=== PATIENT | male | born 1970 | race Caucasian/White ===

== ENCOUNTER → 2018-04-28 14:50 | Outpatient (CLI) | payer OTHER, SELFPAY ==
[2018-04-28 18:24] LABS: HIV - WCH Non-Reactive (Nonreactive)
[2018-04-28 19:55] LABS: Chlamydia Trachomatis by PCR Negative (Negative); Neisserai gonorrhoeae by PCR Negative (Negative); Probe Check PASS; Sample Adequacy Control PASS; Specimen Processing Control PASS
[2018-05-01 15:14] LABS: HEPATITIS B SURFACE AG Negative (Negative); HSV 1 IgG < 0.91 index (0.00-0.90); HSV 2 IgG < 0.91 index (0.00-0.90)
[2018-05-05 03:11] LABS: Rapid Plasmin Reagin (RPR) NONREACTIVE (NONREACTIVE)
== END ==
PROVIDERS: Family Provider Family Medicine; PCP Family Medicine; Visit Provider Family Medicine
DX: A60.00 Herpesviral infection of urogenital system, unspecified (principal); Z20.2 Contact with and (suspected) exposure to infections with a predominantly sexual mode of transmission
CPT/HCPCS: 36415; 86592; 86695; 86696; 86703; 87340; 87491; 87591

== ENCOUNTER → 2018-05-22 15:09 | Outpatient (CLI) | payer OTHER, SELFPAY ==
[2018-05-22 17:33] LABS: Hematocrit 43.5 % (40-54); Hemoglobin 14.1 g/dl (13.0-16.5); Mean Corp Hgb Conc 32.4 g/gl (32-36); Mean Corpuscular Hgb 29.3 pg (27.0-32.0); Mean Corpuscular Volume 90.4 fL (80-94); Mean Platelet Vol. 10.8 fl (6.2-12.0); Platelet Count 269 K/mm3 (150-450); RBC Distribution Width CV 14.1 % (11.6-14.6); RBC Distribution Width SD 46.5 fl (35.1-43.9); Red Blood Count 4.81 M/mm3 (4.6-6.2); White Blood Count 5.3 K/mm3 (4.4-11.0)
[2018-05-22 17:34] LABS: Absolute Lymphocyte Count 2.08 X10^3/ul (0.83-4.51); Absolute Neutrophil Count 2.7 X10^3/uL (2.0-7.7); Basophil# 0.02 X10^3/uL; Basophil% 0.4 % (0-1); Eosinophil# 0.08 X10^3/uL; Eosinophils% 1.5 % (0-5); Lymphocyte # 2.08 X10^3/ul (4.0); Lymphocyte % 39.3 % (19-41); Monocyte# 0.44 X10^3/uL; Monocyte% 8.3 % (0-10); Neutrophil # 2.66 X10^3/uL (2.7-7.7); Neutrophil % 50.3 % (47-70); POSITIVE COUNT NO; POSITIVE DIFFERENTIAL NO; POSITIVE MORPHOLOGY NO
[2018-05-22 18:20] LABS: AST(SGOT) 13 U/L (15-37); Alanine Aminotransfer ALT/SGPT 20 U/L (16-61); Albumin, Serum 3.7 g/dL (3.2-5.0); Alkaline Phosphatase 65 U/L (45-117); Anion Gap 7 (5-15); BUN 10 mg/dL (7-18); BUN/Creat Ratio 9.7 RATIO (10-20); CRP < 2.90 mg/L (0.0-3.0); Calcium,Total 9.4 mg/dL (8.5-10.1); Chloride 108 mmol/L (98-107); Creatinine, Serum 1.03 mg/dL (0.70-1.30); EST Glomerular Filtration Rate 82 mL/min (>60); Est Glom Filt Rate - Afr Amer 99 mL/min (>60); Globulin 3.6 g/dL (2.2-4.2); Glucose 80 mg/dL (74-106); Potassium 4.1 mmol/L (3.5-5.1); Protein, Total 7.3 g/dL (6.4-8.2); Sodium Level 142 mmol/L (136-145)
== END ==
PROVIDERS: Visit Provider Family Medicine
DX: R10.13 Epigastric pain (principal)
CPT/HCPCS: 36415; 80053; 85025; 86140

== ENCOUNTER → 2019-03-05 16:47 | Outpatient (CLI) | payer OTHER, SELFPAY ==
[2019-03-05 18:12] LABS: Hemoglobin A1c 5.3 % (4.2-6.3)
[2019-03-05 18:39] LABS: Cholesterol 263 mg/dL (200); High Density Lipoprotein 39 mg/dL; Triglycerides 412 mg/dL
== END ==
PROVIDERS: Nurse Practitioner Family; Visit Provider Family Medicine
DX: E66.9 Obesity, unspecified (principal)
CPT/HCPCS: 36415; 80061; 83036

== ENCOUNTER → 2020-02-21 16:30 | Outpatient (CLI) | payer OTHER, SELFPAY ==
[2020-02-21 18:08] LABS: Absolute Lymphocyte Count 2.36 X10^3/uL (0.83-4.51); Absolute Neutrophil Count 2.7 X10^3/uL (2.0-7.7); Basophil# 0.03 X10^3/uL; Basophil% 0.5 % (0-1); Eosinophil# 0.12 X10^3/uL; Eosinophils% 2.1 % (0-5); Hematocrit 46.5 % (40-54); Hemoglobin 15.1 g/dL (13.0-16.5); Lymphocyte # 2.36 X10^3/ul (4.0); Mean Corp Hgb Conc 32.5 g/dL (32-36); Mean Corpuscular Volume 89.4 fL (80-94); Mean Platelet Vol. 10.5 fl (6.2-12.0); Monocyte# 0.37 X10^3/uL; Monocyte% 6.6 % (0-10); NRBC Flagged by Analyzer 0 % (0-5); Neutrophil # 2.73 X10^3/uL (2.7-7.7); Neutrophil % 48.6 % (47-70); Platelet Count 293 K/mm3 (150-450); RBC Distribution Width CV 13.6 % (11.6-14.6); RBC Distribution Width SD 44.3 fl (35.1-43.9); White Blood Count 5.6 K/mm3 (4.4-11.0)
[2020-02-21 18:51] LABS: ALB/GLOB Ratio 1.1 RATIO (0.9-2.4); AST(SGOT) 20 U/L (15-37); Alanine Aminotransfer ALT/SGPT 36 U/L (16-61); Albumin, Serum 4.1 g/dL (3.2-5.0); Alkaline Phosphatase 71 U/L (45-117); Anion Gap 5 (5-15); BUN 17 mg/dL (7-18); BUN/Creat Ratio 17.3 RATIO (10-20); Chloride 105 mmol/L (98-107); Cholesterol 250 mg/dL (200); Creatinine, Serum 0.98 mg/dL (0.70-1.30); EST Glomerular Filtration Rate 85 mL/min (>60); Est Glom Filt Rate - Afr Amer 103 mL/min (>60); Globulin 3.7 g/dL (2.2-4.2); Glucose 76 mg/dL (74-106); High Density Lipoprotein 41 mg/dL; PSA,Total - Annual Screen 3.32 ng/mL (0.00-4.00); Potassium 3.9 mmol/L (3.5-5.1); Protein, Total 7.8 g/dL (6.4-8.2); Sodium Level 139 mmol/L (136-145); Triglycerides 282 mg/dL; Very Low Density Lipoprotein 56 mg/dL (5-40)
== END ==
PROVIDERS: PCP Registered Nurse; Referring Provider Registered Nurse; Visit Provider Registered Nurse
DX: Z00.00 Encounter for general adult medical examination without abnormal findings (principal)
CPT/HCPCS: 36415; 80053; 80061; 83036; 84153; 85025; G0103

== ENCOUNTER → 2020-07-15 15:55 | Outpatient (CLI) | payer OTHER, SELFPAY ==
[2020-07-15 18:10] LABS: Absolute Lymphocyte Count 2.13 X10^3/uL (0.83-4.51); Absolute Neutrophil Count 2.6 X10^3/uL (2.0-7.7); Basophil# 0.04 X10^3/uL; Basophil% 0.8 % (0-1); Eosinophils% 1.9 % (0-5); Hematocrit 46.2 % (40-54); Hemoglobin 15.3 g/dL (13.0-16.5); Lymphocyte # 2.13 X10^3/ul (0.83-4.51); Lymphocyte % 40.4 % (19-41); Mean Corp Hgb Conc 33.1 g/dL (32-36); Mean Corpuscular Hgb 29.6 pg (27.0-32.0); Mean Corpuscular Volume 89.4 fL (80-94); Mean Platelet Vol. 10.6 fl (6.2-12.0); Monocyte# 0.35 X10^3/uL; Monocyte% 6.6 % (0-10); NRBC Flagged by Analyzer 0 % (0-5); Neutrophil # 2.64 X10^3/uL (2.7-7.7); Neutrophil % 50.1 % (47-70); Platelet Count 319 K/mm3 (150-450); RBC Distribution Width CV 13.4 % (11.6-14.6); RBC Distribution Width SD 44.1 fl (35.1-43.9); Red Blood Count 5.17 M/mm3 (4.6-6.2); White Blood Count 5.3 K/mm3 (4.4-11.0)
[2020-07-15 18:49] LABS: ALB/GLOB Ratio 1.1 RATIO (0.9-2.4); AST(SGOT) 12 U/L (15-37); Alanine Aminotransfer ALT/SGPT 25 U/L (16-61); Alkaline Phosphatase 76 U/L (45-117); Anion Gap 6 (5-15); BUN 12 mg/dL (7-18); BUN/Creat Ratio 12.4 RATIO (10-20); Calcium,Total 9.1 mg/dL (8.5-10.1); Chloride 107 mmol/L (98-107); Creatinine, Serum 0.97 mg/dL (0.70-1.30); EST Glomerular Filtration Rate 87 mL/min (>60); Est Glom Filt Rate - Afr Amer 105 mL/min (>60); Globulin 3.6 g/dL (2.2-4.2); Glucose 98 mg/dL (74-106); Potassium 3.5 mmol/L (3.5-5.1); Protein, Total 7.6 g/dL (6.4-8.2); Sodium Level 141 mmol/L (136-145); Thyroid Stim Hormone (TSH) 2.56 uIU/mL (0.358-3.74)
== END ==
PROVIDERS: PCP Family Medicine; Referring Provider Family Medicine; Visit Provider Family Medicine
DX: R42 Dizziness and giddiness (principal)
CPT/HCPCS: 36415; 80053; 84443; 85025

== ENCOUNTER 2022-11-12 06:40 | Day surgery (SDC) | payer MEDICAID, SELFPAY ==
--- NOTE | 2022-11-12 | GASB_PTH ---
PATIENT: AUDREY AQUINO LOC: EN U#:[id number] AGE/SX: 52/M ROOM: RE11/12/[address]: Dr. Lam Chacon MD : 1970 BED: DIS: 11/12/2022 SPEC #: [id number] RECD: 11/12/22 12:50 STATUS: TERRY DENNIS #: [id number] XIOMARA: 11/12/22 00:[address]: Lam Chacon DEPT: SURGICAL PATHOLOGY RECD BY: Woody Solis ENTERED: 11/12/22 12:50 SP TYPE: Gastric Bx OTHR DR: Dr. Zana Pacheco MD Tissues: Gastric mucous membrane Procedures: Special Stain Group II Surgery Specimen Level IV Alcian Blue/PAS (control) HEADER OPERATION: EGD biopsy PRE-OP DIAGNOSIS: Acid reflux TISSUE SUBMITTED: Gastroesophageal junction biopsy MICROSCOPIC DIAGNOSIS Gastroesophageal junction, biopsy: Mild chronic and focal acute inflammation. Focal changes of reflux. No evidence of goblet cell metaplasia. See comment. AM:hailey 11/15/2022 COMMENT Alcian blue/PAS stain with matched control supports the above diagnosis. MICROSCOPIC DESCRIPTION Slides are reviewed. GROSS DESCRIPTION Received in fixative is one container labeled with the patient's name and designated GE junction biopsy. The specimen consists of two irregular fragments of light galindo soft tissue that in aggregate measure 0.6 x 0.3 x 0.1 cm. The specimen is totally submitted in one cassette. / SJ:hailey 11/12/2022 TC:2 CPT: 41862, 83688
[2022-11-12 07:08] VITALS: BP 114/77; PULSE 55; RESP 16; TEMP 36.4; O2SAT 98; BMI 29.7
--- NOTE | 2022-11-12 07:12 | HP.PCM_ITS ---
History and Physical Date of Admission: 11/12/22 Intake Vital Signs 10/29/2307:45 Height 6 ft 4 in Weight: 251 lb 4 oz BMI 30.5 BP 132/82 H Blood Pressure Location Rt brachial Position Sitting Respiration 16 Pulse 72 Pulse Source Monitor Pulse Oximetry (%) 96 Intake Visit Reasons: S/R ACID REFLUX Chief Complaint: ACID REFLUX Allergies No Known Allergies Allergy (Unverified 10/28/22 08:47) PFSH Medical History (Updated 10/28/22 @ 09:[address] Lam Chacon MD) Acid reflux Surgical History (Updated 10/28/22 @ 08:44 by Dennise Briceño) History of appendectomy Family History (Updated 10/28/22 @ 08:45 by Dennise Briceño) Father Heart diseaseMother CVA (cerebral vascular accident) HPI HPI HPI: Patient is a 52-year-old male here for acid reflux. He says this is been going on for years. He has been on omeprazole for at least 3 years. He says that about a week ago he had a very sore throat and attributed to that. ROS General General: No weight change, appetite, fatigue, colon cancer, breast cancer or weakness HEENT HEENT: Yes difficulty swallowing; No eye injury, eye surgery, swollen glands or hoarseness Endo Endocrine: No thyroid disease, diabetes mellitus, thyroid cancer, Hair loss, heat intolerance or cold intolerance Skin Skin: No rash or changing moles Breast Breast: No left breast lump, right breast lump, nipple discharge, breast pain, abnormal mammogram, abnormal US or breast enlargement Musc Musculoskeletal: No back problems, arthritis, rheumatoid arthritis, gout or joint pain Cardio Cardiovascular: No murmur, pacemaker, heart disease, atrial fibrillation, high blood pressure, heart attack, heart stent, palpitations, shortness of breat with exertion or chest pain Psych Psychiatric: No depression, anxiety or hearing voices Resp Respiratory: No shortness of breath, No sleep apnea, No cough, No COPD, No asthma, No emphysema and No wheezing Gastro Gastrointestinal: No abdominal pain, No nausea or vomiting, No diarrhea, Yes constipation, No blood in stool, Yes acid reflux, No hemorrhoids, No ulcers, No gallbladder problem and No black,tarry stools Victor Hugo Hematologic: No blood thinners, No blood disorders, No bleeding, No anemia and No blood clots Neuro Neurologic: No system reviewed and no additional complaints, except as documented, No as per HPI, No abnormal gait, No abnormal hearing, No abnormal movements, No abnormal speech, No behavioral changes, No burning sensations, No confusion, No convulsions, No disequilibrium, No dizziness, No localized weakness, No frequent falls, No headache(s), No lack of coordination, No loss of vision, No memory loss, No numbness, No other visual disturbances, No radicular pain, No restless legs, No sensory deficit, No syncope, No tingling, No tremor(s), No weakness and No other Exam Const General: cooperative Orientation: alert and oriented x3 HENMT Head: normal to inspection Neck Neck: normal visual inspection and full ROM Chest Chest palpation & inspection: normal inspection of the chest Resp Effort & Inspection: normal respiratory effort Auscultation: clear to auscultation bilaterally Cardio Rate: regular rate Rhythm: regular rhythm GI Inspection: non-distended Palpation: soft and nontender Skin General: no rashes or lesions noted Neuro General: patient alert and patient oriented x3 Extrem General: full ROM Psych Appearance: grossly normal Mental Status: mental status grossly normal Assessment and Plan Assessment and Plan (1) Acid reflux: Status: Acute Qualifiers: Esophagitis presence: esophagitis presence not specified Qualified Code(s): K21.9 - Gastro-esophageal reflux disease without esophagitis Plan: The patient is having acid reflux and already takes a PPI. I discussed fundoplication with him as well as EGD. At this time the patient is not very interested in fundoplication and I did advise him to start taking his omeprazole first thing in the morning. The patient was agreeable to an EGD. I explained endoscopy in detail to the patient. I explained the risks including but not limited to stroke or heart attack with anesthesia, perforation of the GI tract, bleeding, infection. I explained that any of these could necessitate further emergency surgery. The patient understands and all questions were answered sufficiently. The patient wishes to proceed with procedure. Lam Chacon MD Pager: [facility] [address] [place] [address], [address] [place] [address] Office: I have examined the patient and the H&P has been reviewed. There are no clinical changes since date of exam.
[2022-11-12] MEDS: Lactated Ringers 1,000 ML 15 ML IV (07:18)
[2022-11-12 07:45] VITALS: BP 114/77; BP 98/71; PULSE 62; RESP 16; TEMP 36.4; O2SAT 95
--- NOTE | 2022-11-12 07:48 | OP.CCLET_ITS ---
11/12/2022 Ar[address] [place] [address] Re : Upper GI endoscopy procedure for Anthony Fernandez Dear Dr. Kan This procedure was performed on Saturday, November 12, 2022. My impressions and recommendations are as follows: Impressions : - Mildly severe reflux esophagitis with no bleeding. Biopsied. - Normal stomach. - Normal examined duodenum. Recommendations : - Discharge patient to home. - Resume previous diet. - Continue present medications. - Await pathology results. My findings are described in the full procedure note, which is enclosed. If I can be of further assistance, please feel free to contact me at Doctor phone number(s): , Work: . Sincerely, Lam Chacon MD 11/12/2022 7:47:45 AM This report has been signed electronically.
--- NOTE | 2022-11-12 07:48 | OP.EGD_ITS ---
Patient Name: Anthony Fernandez Procedure Date: 11/12/2022 7:11 AM Date of : 1970 Age: 52 Procedure: Upper GI endoscopy Indications: Esophageal reflux Providers: Lam Chacon MD Referring MD: Argenis Kan Medicines: Monitored Anesthesia Care Patient Profile: This is a 52 year old male. Refer to note in patient chart for documentation of history and physical. Complications: No immediate complications. Procedure: Pre-Anesthesia Assessment: - Prior to the procedure, a History and Physical was performed, and patient medications and allergies were reviewed. The patient's tolerance of previous anesthesia was also reviewed. The risks and benefits of the procedure and the sedation options and risks were discussed with the patient. All questions were answered, and informed consent was obtained. Prior Anticoagulants: The patient has taken no anticoagulant or antiplatelet agents. After reviewing the risks and benefits, the patient was deemed in satisfactory condition to undergo the procedure. After obtaining informed consent, the endoscope was passed under direct vision. Throughout the procedure, the patient's blood pressure, pulse, and oxygen saturations were monitored continuously. The gastroscope was introduced through the mouth, and advanced to the fourth part of duodenum. The upper GI endoscopy was accomplished without difficulty. The patient tolerated the procedure well. Scope In: 7:34:59 AM Scope Out: 7:38:15 AM Total Procedure Duration Time 0 hours 3 minutes 16 seconds Findings: Mildly severe esophagitis with no bleeding was found at the gastroesophageal junction. Biopsies were taken with a cold forceps for histology. The stomach was normal. The examined duodenum was normal. Impression: - Mildly severe reflux esophagitis with no bleeding. Biopsied. - Normal stomach. - Normal examined duodenum. Recommendation: - Discharge patient to home. - Resume previous diet. - Continue present medications. - Await pathology results. Procedure Code(s): --- Professional --- 38516, Esophagogastroduodenoscopy, flexible, transoral; with biopsy, single or multiple Diagnosis Code(s): --- Professional --- K21.00, Gastro-esophageal reflux disease with esophagitis, without bleeding CPT copyright 2021 [employer]. All rights reserved. The codes documented in this report are preliminary and upon parachute repairer review may be revised to meet current compliance requirements. Lam Chacon MD 11/12/2022 7:47:45 AM This report has been signed electronically. Number of Addenda: 0 Note Initiated On: 11/12/2022 7:11 AM
[2022-11-12 07:50] VITALS: BP 114/77; BP 99/74; PULSE 63; RESP 16; O2SAT 95
[2022-11-12 07:55] VITALS: BP 106/73; BP 114/77; PULSE 65; RESP 16; O2SAT 96
[2022-11-12 08:00] VITALS: BP 108/74; BP 114/77; PULSE 58; RESP 16; TEMP 36.1; O2SAT 96
[2022-11-12 08:24] VITALS: BP 114/77
== END 2022-11-12 08:31 | disposition home or self-care (01) ==
LOC: EN 06:44 → AC 06:44
PROVIDERS: PCP Family Medicine; Referring Provider Family Medicine; Visit Provider Surgery
PROC: 0DJ08ZZ Inspection of Upper Intestinal Tract, Via Natural or Artificial Opening Endoscopic (ICD-10-PCS; CPT 43235; principal; 2022-11-12 07:25)
DX: K21.00 Gastro-esophageal reflux disease with esophagitis, without bleeding (principal); Z79.899 Other long term (current) drug therapy
CPT/HCPCS: 43239; 88305; 88313; J7120; J2405

== ENCOUNTER → 2023-09-12 | Outpatient (CLI) | payer MEDICAID, SELFPAY ==
--- NOTE | 2023-09-12 07:29 | MRI_ITS ---
STUDY: MRI RIGHT KNEE REASON FOR EXAM: Male, 52 years old. Medial knee pain with clicking. Meniscal surgery 30 years ago. TECHNIQUE: Standardized fat and water weighted pulse sequences were obtained in all 3 orthogonal planes. COMPARISON: None. FINDINGS: Trifurcation with loss of substance of the body of the medial meniscus (coronal series 7 image 15). Horizontal cleavage tear of the posterior horn of the medial meniscus with marked extrusion of the medial meniscus (sagittal series 4 images 20-24). Moderate thinning of the articular cartilage of the medial femorotibial compartment with reactive subchondral bone marrow edema within the medial tibial plateau (coronal series 7 images 10-19). Normal medial collateral ligamentous complex (MCL). Normal distal semimembranosus, gracilis and semitendinosus tendons. Normal lateral meniscus. Normal hyaline cartilage of the lateral femorotibial compartment. Normal lateral femoral condyle and tibial plateau. Normal proximal tibiofibular articulation. Normal lateral collateral (fibular) ligament. Normal popliteus tendon. Normal biceps femoris tendon. Normal anterior cruciate ligament (ACL). Normal posterior cruciate ligament (PCL). Normal congruent patellofemoral articulation. Normal hyaline cartilage of the patellofemoral compartment. Normal medial and lateral patellar retinaculum. Normal quadriceps tendon. Normal patellar tendon. Normal Hoffa''s fat pad. Deep infrapatellar bursitis (sagittal series 4 images 7-9). Small suprapatellar joint effusion (axial series 2 images 10-18). Soft tissues and other osseous structures are normal. MRI/Lower Ext Joint Only (Routine) IMPRESSION: Trifurcation with loss of substance of the body of the medial meniscus, likely secondary to partial meniscectomy. Horizontal cleavage tear of the posterior horn of the medial meniscus with marked extrusion of the meniscus. Moderate thinning of the articular cartilage of the medial femorotibial compartment with reactive subchondral bone marrow edema in the medial tibial plateau. Deep infrapatellar bursitis. Small suprapatellar joint effusion. Electronically Signed: Abdoul Sinclair MD at 10:05 EDT ,
== END | disposition home or self-care (01) ==
LOC: MRI 07:25
PROVIDERS: Referring Provider Orthopaedic Surgery Sports Medicine; Visit Provider Orthopaedic Surgery Sports Medicine
DX: M25.561 Pain in right knee (principal)
CPT/HCPCS: 73721

== ENCOUNTER → 2023-09-16 | Outpatient (CLI) | payer MEDICAID, SELFPAY ==
[2023-09-19 12:08] LABS: PSA, Free 0.56 ng/mL; PSA, Free % 15.5 % (.)
== END | disposition home or self-care (01) ==
PROVIDERS: PCP Internal Medicine
DX: R97.20 Elevated prostate specific antigen [PSA] (principal)
CPT/HCPCS: 36415; 84153; 84154

== ENCOUNTER 2023-09-27 08:00 | Outpatient (RCR) | payer MEDICAID, SELFPAY ==
--- NOTE | 2023-09-01 09:53 | HP.PTEVAL ---
Patient's Visit Information Visit Information Visit Information: AUDREY AQUINO is a 52 year old M referred to Physical Therapy by Dr. Erich Galvan MD with a diagnosis of Pain in right knee, M25.561. Date of Evaluation: 09/01/23 Physical Therapist: Luis Manuel Sofia Visit Plan Frequency: 1-2x /Week Duration: 6 Weeks Plan: Continue with improving LE strength and balance. Use manual therapy and modalities as needed for pain control. Subjective Subjective: Pt. is a 52 y.o. male who has been having right knee pain for several of years but has gotten worse in the last couple of months. His PLOF includes history of meniscus surgery when he was younger. He had recent x-ray of his right knee which showed mild joint effusion. He got a cortisone shot which has really helped. He denies any numbness or tingling in his leg and denies any falls. Pt. has difficulty with walking, walking on uneven ground, ascending/descending stairs, occasionally sitting, sleeping, squatting, kneeling, yard work, and work activity. 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 His goal with physical therapy is to have less pain. He denies any knee pain currently, at worst 9/10 and describes the pain as dull, achy, sharp, and throbbing. He will occasionally take Alleve for pain. His PMH includes right knee meniscus surgery and appendectomy. His hobbies include camping and riding motorcycle. Objective Objective: Palpation- Tenderness over right knee MCL Left knee AROM extension 0 degrees and flexion 130 degrees Right knee AROM extension 0 degrees and flexion 132 degrees Left hip strength flexion 5/5, abduction 5/5, adduction 5/5, extension 5/5, knee flexion 5/5, knee extension 5/5, ankle DF 5/5, ankle PF 5/5 Right hip strength flexion 5/5, abduction 4+/5, adduction 5/5, extension 5/5, knee flexion 5/5, knee extension 5/5, ankle DF 5/5, ankle PF 5/5 Special tests - Anterior drawer -, Posterior drawer -, Evelin's -, Varus -, Valgus -, Bradley's - SLS on left 11 secs, right 30 secs Tandem stance left 30 secs, right 30 secs Gait- Pt. ambulates with no gait deviations. Stairs- Pt. ambulates with alternating step pattern. Balance/Special Test Scores Lower Extremity Functional Score: 35 Goals Goal 1:: Pt. will be independent with home exercise program. Goal Time Frame: 4-6 Weeks Goal 2:: Pt. will be able to ambulate at least 20 minutes with right knee pain < 3/10. Goal Time Frame: 4-6 Weeks Goal 3:: Pt. will be able to sleep a full night with no right knee pain. Goal Time Frame: 4-6 Weeks Goal 4:: Pt. will be able to ascend/descend a flight of stairs with alternating step pattern and no right knee pain. Goal Time Frame: 4-6 Weeks Goal 5:: Pt. will be able to squat with no right knee pain. Goal Time Frame: 4-6 Weeks Goal 6:: Pt. will improve LEFS < 40% disability in order to improve ADL's. Goal Time Frame: 4-6 Weeks Rehabilitation Potential Physical Therapy Diagnosis: Decreased right LE strength, difficulty walking, and pain Rehabilitation Potential: Good Anticipated Interventions Patient/Client Instruction: Educate patient on: Condition, Plan of Care and Benefits of Fitness Program For the Purpose of:: To decrease pain, To improve ability to perform ADL's, To improve performance and independence with ADL's, To assume or resume ADL's and To improve tolerance to ADL's Therapeutic Exercise to Include: Strength training, Balance training, Gait and locomotor training and Active ROM Comment: Continue with improving LE strength and balance. For the Purpose of:: To decrease pain, To improve ability to perform ADL's, To improve performance and independence with ADL's, To increase flexibility/ROM, To improve balance, To assume or resume ADL's and To improve tolerance to ADL's Manual Therapy Techniques to Include: Mobilization and Soft tissue mobilization For the Purpose of:: To decrease pain, To improve ability to perform ADL's, To improve performance and independence with ADL's, To assume or resume ADL's and To improve tolerance to ADL's TENS: Yes IF ES: Yes Cryotherapy (ice pack, ice massage): Yes For the Purpose of:: To decrease pain, To improve ability to perform ADL's, To improve performance and independence with ADL's, To increase flexibility/ROM, To assume or resume ADL's and To improve tolerance to ADL's Text: Thank you for the opportunity to evaluate your patient. For Medicare and Medicare HMO plans, please review the plan of care and approve it. It will need to be FAXED BACK to us at [phone] for Medicare purposes. For Medicare only, by signing this I certify the plan of care. Please let me know if there are questions or concerns regarding this plan of care. Physician Signature: Date:
--- NOTE | 2023-11-29 16:32 | HP.PT.NRP ---
Patient Information Patient Information: AUDREY AQUINO was seen in my office for initial evaluation on 09/01/23. The following Plan of Care was established for this patient: POC Established Initial Frequency: 1-2x /Week Initial Duration: 6 Weeks Anticipated Interventions Patient/Client Instruction: Educate patient on: Condition, Plan of Care and Benefits of Fitness Program For the Purpose of:: To decrease pain, To improve ability to perform ADL's, To improve performance and independence with ADL's, To assume or resume ADL's and To improve tolerance to ADL's Therapeutic Exercise to Include: Strength training, Balance training, Gait and locomotor training and Active ROM For the Purpose of:: To decrease pain, To improve ability to perform ADL's, To improve performance and independence with ADL's, To increase flexibility/ROM, To improve balance, To assume or resume ADL's and To improve tolerance to ADL's Manual Therapy Techniques to Include: Mobilization and Soft tissue mobilization For the Purpose of:: To decrease pain, To improve ability to perform ADL's, To improve performance and independence with ADL's, To assume or resume ADL's and To improve tolerance to ADL's TENS: Yes IF ES: Yes Cryotherapy (ice pack, ice massage): Yes For the Purpose of:: To decrease pain, To improve ability to perform ADL's, To improve performance and independence with ADL's, To increase flexibility/ROM, To assume or resume ADL's and To improve tolerance to ADL's Last Seen Last Seen: This patient was last seen in our office 09/27/23. Pertinent comments regarding their Physical therapy will appear below: Pt seen 4 visits of POC and then rechecked and sent back to doctor, was to continue with strengthening but did not schedule any further visits. At this point, it has been over 2 months and I will discontinue from our care. At this point I will be discontinuing this patient from physical therapy. I would be happy to see this patient again in the future if found appropriate by the physician. Thank you! Zana Ma, DPT, OCS, CSCS Balance/Gait/Functional tests Balance/Special Test Scores Lower Extremity Functional Score: 35
== END 2023-09-27 19:00 | disposition home or self-care (01) ==
LOC: PT 08:00
PROVIDERS: PCP Family Medicine; Referring Provider Orthopaedic Surgery Sports Medicine; Visit Provider Orthopaedic Surgery Sports Medicine
DX: M25.561 Pain in right knee (principal)
CPT/HCPCS: 97110; 97161

== ENCOUNTER 2024-04-13 15:17 | Outpatient (CLI) | payer OTHER, SELFPAY ==
[2024-04-13 18:10] LABS: PSA,Total- Diagnostic 5.82 ng/mL (0.0-4.0)
== END 2024-04-13 23:59 | disposition home or self-care (01) ==
PROVIDERS: PCP Internal Medicine
DX: R97.20 Elevated prostate specific antigen [PSA] (principal)
CPT/HCPCS: 36415; 84153